=== PATIENT | female | born 1980 | race Asian ===

== ENCOUNTER 2016-07-19 20:33 | Emergency (ER) | payer OTHER ==
[~2016-07-19] VITALS: Ht 162.6 cm; Wt 74.4 kg
[~2016-07-19 20:33] MED LIST: PRINIVIL5 MG OR
[2016-07-19] MEDS ORDERED: HYDR25TA60 PO (21:19)
[2016-07-19] MEDS ORDERED: HYDR5TAB9 PO (21:20)
[2016-07-19] MEDS ORDERED: PENICILLN VK500 MG OR (21:21)
[2016-07-19 22:21] VITALS: BP 145/85; TEMP 98.2
== END 2016-07-19 22:22 | disposition home or self-care (01) ==
LOC: ED 20:33
DX: M54.9 Dorsalgia, unspecified (principal)
CPT/HCPCS: 99281

== ENCOUNTER 2017-08-02 09:16 | Emergency (ER) | payer BC ==
[~2017-08-02] VITALS: Ht 162.6 cm; Wt 76.2 kg
[~2017-08-02 09:16] MED LIST changes: +HYDR25TA60 PO; +HYDR5TAB9 PO; +PENICILLN VK500 MG OR
[2017-08-02 09:39] VITALS: BP 179/110; TEMP 98
== END 2017-08-02 11:15 | disposition home or self-care (01) ==
LOC: ED 09:16
DX: J03.90 Acute tonsillitis, unspecified (principal)
CPT/HCPCS: 87081; 87880; 99282

== ENCOUNTER 2017-10-10 04:56 | Emergency (ER) | payer BC ==
[~2017-10-10] VITALS: Ht 162.6 cm; Wt 74.8 kg
[2017-10-10 06:07] VITALS: BP 154/90; TEMP 98.3
== END 2017-10-10 06:10 | disposition home or self-care (01) ==
LOC: ED 04:56
DX: K02.9 Dental caries, unspecified (principal)

== ENCOUNTER 2018-04-11 01:24 | Emergency (ER) | payer BC ==
[~2018-04-11] VITALS: Ht 162.6 cm; Wt 74.8 kg
[2018-04-11 02:32] VITALS: BP 138/87; TEMP 97.5
== END 2018-04-11 02:33 | disposition home or self-care (01) ==
LOC: ED 01:24
DX: J03.90 Acute tonsillitis, unspecified (principal)
CPT/HCPCS: 87651; 96372; 99283; J1020

== ENCOUNTER 2019-01-30 00:05 | Emergency (ER) | payer BC ==
[~2019-01-30] VITALS: Ht 162.6 cm; Wt 74.8 kg
[2019-01-30 00:15] VITALS: BP 170/107; TEMP 97.7
== END 2019-01-30 02:58 | disposition home or self-care (01) ==
LOC: ED 00:05
PROC: 0HQNXZZ Repair Left Foot Skin, External Approach (ICD-10-PCS; principal; 2019-01-30)
PROC: 2W3RX1Z Immobilization of Left Lower Leg using Splint (ICD-10-PCS; 2019-01-30)
DX: S91.205A Unspecified open wound of left lesser toe(s) with damage to nail, initial encounter (principal); W51.XXXA Accidental striking against or bumped into by another person, initial encounter
CPT/HCPCS: 99283; J7040

== ENCOUNTER 2022-03-04 09:07 | Emergency (ER) | payer BC ==
[~2022-03-04] VITALS: Ht 162.6 cm; Wt 74.8 kg
[2022-03-04 09:22] VITALS: TEMP 97.6
[2022-03-04 10:00] VITALS: BP 138/78
== END 2022-03-04 10:00 | disposition home or self-care (01) ==
LOC: ED 09:07
DX: S40.012A Contusion of left shoulder, initial encounter (principal); V89.2XXA Person injured in unspecified motor-vehicle accident, traffic, initial encounter; Y92.89 Other specified places as the place of occurrence of the external cause
CPT/HCPCS: 99283